=== PATIENT | male | born 1965 | race African-American/Black ===

== ENCOUNTER 2020-09-27 10:46 | Emergency (ER) | payer MEDICAID ==
[~2020-09-27] VITALS: Ht 175.3 cm; Wt 90.0 kg
[2020-09-27] MEDS ORDERED: FAMOTIDINE 20MG/2ML VIAL IV STA (11:54)
[2020-09-27] MEDS ORDERED: MAGNESIUM/ALUMINUM HYDROXIDE/SIMETHICONE 30ML UDC PO STA (11:54)
[2020-09-27 12:37] LABS: BASOPHILS % 1.4 % (0.0-2.0); EOSINOPHILS % 0.2 % (0.0-5.0); HEMOGLOBIN. 13.9 g/dL (14.0-18.0); LYMPHOCYTES % 34.2 % (20.0-50.0); MEAN CORPUSCULAR HEMOGLOBIN 26.9 pg (28.0-32.0); MEAN CORPUSCULAR VOLUME 81.6 fL (80.0-94.0); MEAN PLATELET VOLUME 9.2 fl (7.4-10.4); MONOCYTES % 6.9 % (2.0-8.0); NEUTROPHILS % 57.3 % (40.0-76.0); PLATELET 192 x1000/uL (130-400); RED BLOOD CELL COUNT 5.14 mill/uL (4.7-6.1); RED CELL DISTRIBUTION WIDTH 14.9 % (11.6-14.6)
[2020-09-27 12:39] LABS: CLARITY URINE CLEAR (CLEAR); COLOR URINE YELLOW (YELLOW); KETONES URINE NEGATIVE (NEGATIVE); LEUKOCYTE ESTERASE URINE NEGATIVE (NEGATIVE); NITRITE URINE NEGATIVE (NEGATIVE); OCCULT BLOOD URINE NEGATIVE (NEGATIVE); PH URINE 7.5 (4.5-8.0); PROTEIN URINE NEGATIVE (NEGATIVE); SPECIFIC GRAVITY URINE 1.004 (1.005-1.030); UROBILINOGEN URINE 0.2 E.U./dL (0.2-1.0)
[2020-09-27 12:45] LABS: CHLORIDE 105 mEq/L (98-107)
[2020-09-27] MEDS ORDERED: OMEP20CA14 MT (13:04)
[2020-09-27] MEDS ORDERED: MAG355OR21 MT (13:05)
[2020-09-27 13:42] VITALS: BP 143/69
== END 2020-09-27 13:45 | disposition home or self-care (01) ==
LOC: ER 12:29
DX: K29.70 Gastritis, unspecified, without bleeding (principal); Z98.890 Other specified postprocedural states
CPT/HCPCS: 36415; 80053; 81003; 83690; 85025; 93005; 96374; 99284; J3490